=== PATIENT | male | born 1965 | race American Indian/Alaskan Native ===

== ENCOUNTER 2018-07-12 09:24 | Emergency (ER) | payer SELFPAY ==
[2018-07-12 10:03] VITALS: BP 111/58
[2018-07-12] MEDS ORDERED: TORADOL IV ONE (12:32)
[2018-07-12] MEDS ORDERED: NACL 0.9% 1000 ML 1,000 ML IV ONE (12:32)
--- NOTE | 2018-07-12 12:51 | Emergency Department Report ---
<JANUSZ GIPSON - Last Filed: 07/12/18 15:11> ED Male HPI - General Chief complaint: Urogenital-Male Stated complaint: GROWING PAIN Time Seen by Provider: 07/12/18 12:26 Source: patient Mode of arrival: Ambulatory Limitations: No Limitations - History of Present Illness Initial comments: This is a 53-year-old male nontoxic, well nourished in appearance, no acute signs of distress presents to the ED with c/o of right groin pain and swelling 3 months. Patient stated that he had this for a long time but swelling has never resolved and is getting worse and now developed pain. Patient denies any abdominal pain. Patient denies any back pain. Patient denies chest pain, short of breath, fever, chills, headache, stiff neck, numbness or tingling. Patient denies any diarrhea or constipation. Patient denies any recent travels. Patient denies any urinary symptoms or penile discharge. Patient denies any drug allergies or significant PMH. MD Complaint: groin pain -: month(s) (3) Location: right inguinal region Radiation: none Severity: mild Severity scale (0 -10): 8 Quality: aching Consistency: constant Improves with: none Worsens with: none denies other symptoms. denies: discharge, swelling, mass, rash, urinary retention, blood in urine, dysuria, fever, nausea/vomiting, incontinence - Related Data Previous Rx's Medication Instructions Recorded Last Taken Type Cyclobenzaprine HCl [Flexeril 5 MG 5 mg PO Q6HR #20 tablet 07/25/15 Unknown Rx TAB] HYDROcodone/APAP 10-325 [Breese 1 each PO Q6HR PRN #20 tablet 07/25/15 Unknown Rx 10-325 mg TAB] Ibuprofen [Motrin 800 MG tab] 800 mg PO Q8HR PRN #30 tablet 07/25/15 Unknown Rx Acetaminophen with Codeine 1 each PO Q6H PRN #12 tablet 07/12/18 Unknown Rx [Tylenol with Codeine #3 Tablet] Ibuprofen [Motrin] 600 mg PO Q8H PRN #30 tablet 07/12/18 Unknown Rx Allergies Allergy/AdvReac Type Severity Reaction Status Date / Time No Known Allergies Allergy Verified 07/12/18 10:00 ED Review of Systems ROS: Stated complaint: GROWING PAIN Other details as noted in HPI Constitutional: denies: chills, fever Eyes: denies: eye pain, eye discharge, vision change ENT: denies: ear pain, throat pain Respiratory: denies: cough, shortness of breath, wheezing Cardiovascular: denies: chest pain, palpitations Endocrine: no symptoms reported Gastrointestinal: denies: abdominal pain, nausea, diarrhea Genitourinary: denies: urgency, dysuria Musculoskeletal: denies: back pain, joint swelling, arthralgia Skin: denies: rash, lesions Neurological: denies: headache, weakness, paresthesias Psychiatric: denies: anxiety, depression Hematological/Lymphatic: denies: easy bleeding, easy bruising ED Past Medical Hx - Past Medical History Previous Medical History?: No - Surgical History Past Surgical History?: No - Social History Smoking Status: Current Every Day Smoker Substance Use Type: Marijuana - Medications Home Medications: Home Medications Medication Instructions Recorded Confirmed Last Taken Type Cyclobenzaprine HCl [Flexeril 5 MG 5 mg PO Q6HR #20 tablet 07/25/15 08/08/15 Unknown Rx TAB] HYDROcodone/APAP 10-325 [Breese 1 each PO Q6HR PRN #20 tablet 07/25/15 08/08/15 Unknown Rx 10-325 mg TAB] Ibuprofen [Motrin 800 MG tab] 800 mg PO Q8HR PRN #30 tablet 07/25/15 08/08/15 Unknown Rx Acetaminophen with Codeine 1 each PO Q6H PRN #12 tablet 07/12/18 Unknown Rx [Tylenol with Codeine #3 Tablet] Ibuprofen [Motrin] 600 mg PO Q8H PRN #30 tablet 07/12/18 Unknown Rx ED Physical Exam - General Limitations: No Limitations General appearance: alert, in no apparent distress - Head Head exam: Present: atraumatic, normocephalic - Eye Eye exam: Present: normal appearance Pupils: Present: normal accommodation - ENT ENT exam: Present: normal exam, mucous membranes moist - Neck Neck exam: Present: normal inspection, full ROM - Respiratory Respiratory exam: Present: normal lung sounds bilaterally. Absent: respiratory distress - Cardiovascular Cardiovascular Exam: Present: regular rate, normal rhythm. Absent: systolic murmur, diastolic murmur, rubs, gallop - GI/Abdominal GI/Abdominal exam: Present: soft, normal bowel sounds. Absent: distended, tenderness, guarding, rebound, rigid, diminished bowel sounds - Rectal Rectal exam: Present: deferred - exam: Present: normal inspection, other (right inguinal hernia present with tenderness. Reducible. No incarceration.). Absent: testicular tenderness, urethral discharge, scrotal swelling, vertical testicular lie - Extremities Exam Extremities exam: Present: normal inspection, full ROM, normal capillary refill - Back Exam Back exam: Present: normal inspection, full ROM - Neurological Exam Neurological exam: Present: alert, oriented X3, normal gait - Psychiatric Psychiatric exam: Present: normal affect, normal mood - Skin Skin exam: Present: warm, dry, intact, normal color. Absent: rash ED Course Vital Signs 07/12/18 07/12/18 10:00 14:05 Temperature 97.6 F Pulse Rate 51 L Respiratory 16 20 Rate Blood Pressure 111/58 O2 Sat by Pulse 100 Oximetry - Reevaluation(s) Reevaluation #1: 07/12/18 13:03 Patient is speaking in full sentences with no signs of distress noted. - Consultations Consultation #1: 07/12/18 13:03 Patient has been consulted with Danni Crystal about patient history, physical exam, and labs and agrees to ED plan of care. ED Medical Decision Making - Lab Data Result diagrams: 07/12/18 12:38 07/12/18 12:38 - Medical Decision Making This is a 53-year-old male that presents with right inguinal hernia. Patient is stable and was examined by me. There is no abdominal tenderness. Labs obtained. UA obtained. CT of abdomen obtained and dictated by the radiologist. Patient is notified of the report with no questions noted by the patient. Vital signs are stable prior to discharge. PAtient received 1 L normal saline and Toradol in the ED which patient stated symptoms has resolved and subsided. A by mouth challenge has been obtained and patient tolerated well with no nausea vomiting. Patient was notified of strict precatuions of appendictis symptoms and to return to the ED if symptoms occurs as soon as possible. Patient was also instructed to Follow-up with a primary care doctor in 3-5 days or if symptoms worsen and continue return to emergency room as soon as possible. At time of discharge, the patient does not seem toxic or ill in appearance. No acute signs of distress noted. Patient agrees to discharge treatment plan of care. No further questions noted by the patient. Critical care attestation.: If time is entered above; I have spent that time in minutes in the direct care of this critically ill patient, excluding procedure time. ED Disposition Disposition: DC-01 TO HOME OR SELFCARE Is pt being admited?: No Does the pt Need Aspirin: No Condition: Stable Instructions: Inguinal Hernia (ED) Additional Instructions: Follow-up with a primary care/General surgeon doctor in 3-5 days or if symptoms worsen and continue return to emergency room as soon as possible. Prescriptions: Acetaminophen with Codeine [Tylenol with Codeine #3 Tablet] 1 each PO Q6H PRN # 12 tablet PRN Reason: Pain , Severe (7-10) Ibuprofen [Motrin] 600 mg PO Q8H PRN #30 tablet PRN Reason: Pain Referrals: PRIMARY CAREMD [Primary Care Provider] - 3-5 Days KAROL MILLER MD [Staff Physician] - 3-5 Days [facility] [place] [facility]] - 3-5 Days IRINA TODD DO [Staff Physician] - 3-5 Days Forms: Work/School Release Form(ED) <MARLEY DENNIS - Last Filed: 07/12/18 15:18> ED Medical Decision Making - Lab Data Result diagrams: 07/12/18 12:38 07/12/18 12:38 - Medical Decision Making Able to reduce the hernia of the right inguinal region without issue plan is for patient to follow-up with the surgeon as an outpatient. Reduction of the hernia was done by me
[2018-07-12 12:55] LABS: Basophils % (Auto) 0.6 % (0.0-1.8); Eosinophils # (Auto) 0.1 K/mm3 (0.0-0.4); Eosinophils % (Auto) 1.6 % (0.0-4.3); Hematocrit 34.4 % (35.5-45.6); Hemoglobin 10.7 gm/dl (11.8-15.2); Lymphocytes # (Auto) 2.2 K/mm3 (1.2-5.4); Mean Corpuscular HGB Conc 31 % (32-34); Mean Corpuscular Volume 71 fl (84-94); Monocytes # (Auto) 0.4 K/mm3 (0.0-0.8); Monocytes % (Auto) 6.3 % (0.0-7.3); Platelet Count 278 K/mm3 (140-440); Red Blood Count 4.86 M/mm3 (3.65-5.03); Red Cell Distribution Width 15.2 % (13.2-15.2)
[2018-07-12 12:56] LABS: Mean Corpuscular Hemoglobin 22 pg (28-32)
[2018-07-12 13:15] LABS: BUN/Creatinine Ratio 24; Blood Urea Nitrogen 19 mg/dL (9-20); Calcium 9.2 mg/dL (8.4-10.2); Hemolysis Index 9
--- NOTE | 2018-07-12 15:02 | Cat Scan Report ---
CT ABDOMEN PELVIS WITH CONTRAST: HISTORY: Right groin pain with swelling. COMPARISON: none. TECHNIQUE: Helical CT in 1.25mm intervals following IV contrast. Sagittal and coronal reconstructions. FINDINGS: Lung bases: Normal. Liver: Normal. Biliary system: Normal. Pancreas: Normal. Spleen: Normal. Kidneys/ureters/bladder: Normal. Adrenal glands: Normal. Aorta: Normal. Intestines: Unremarkable given no oral contrast was administered. Appendix: Normal. Pelvic viscera: The prostate gland is moderately enlarged for this persons age measuring 5.7 cm in diameter. Ascites: There is trace pelvic ascites. There is also trace ascites in a small right inguinal hernia containing fat. Adenopathy: None. Musculoskeletal: Intact. No fracture or suspicious bony lesion. IMPRESSION: Trace pelvic ascites is identified which is of uncertain etiology. No acute inflammatory process is appreciated in the abdomen or pelvis. Small right inguinal hernia containing fat and ascitic fluid. No bowel loops are incorporated. Mild prostatic enlargement.
== END 2018-07-12 15:50 | disposition home or self-care (01) ==
LOC: ED 09:24
DX: K40.90 Unilateral inguinal hernia, without obstruction or gangrene, not specified as recurrent (principal); F17.200 Nicotine dependence, unspecified, uncomplicated; F12.10 Cannabis abuse, uncomplicated
CPT/HCPCS: 36415; 74177; 80048; 85025; 96361; 96374; 99284; J1885; J7030; Q9967